=== PATIENT | male | born 1990 | race Hispanic/Latino ===

== ENCOUNTER 2017-11-22 11:35 | Inpatient (IN) | payer BC ==
[2017-11-22] MEDS ORDERED: Sodium Chloride 0.9% 1,000 ML IV ONE (12:02)
[2017-11-22] MEDS ORDERED: Albuterol 0.083% Inhal Sol (2.5 mg/3 mL) UD IH STA (12:03)
[2017-11-22] MEDS ORDERED: Piperacill/Tazo 3.375gm in Dex 3.375 GM/50 ML BAG IVPB STA (12:07)
--- NOTE | 2017-11-22 12:08 | C.PDOC ---
History Of Present Illness 27 yo male w/PMhx of asthma BIBA from Urgent care office for evaluation of SOB, possible pneumomediatinum diagnosed on CXR performed at urgent care. Pt reports, cold sx for past 3 days associated with nasal congestion, runny nose. Since yesterday, developed dyspnea, worse on supine position, productive cough with yellow sputum. Otherwise, pt denies high fever, chills, headache, dizziness, neck pain, drooling, CP, palpitation, abd. pain, V/D, back pain, UTI sx. At present time, pt appears comfortable, not in resp. distress. Time Seen by Provider: 11/22/17 11:46 Chief Complaint (Nursing): Cough, Cold, Congestion History Per: Patient Past Medical History Reviewed: Historical Data, Nursing Documentation, Vital Signs Vital Signs: Last Vital Signs Temp 98.1 F 11/22/17 14:36 Pulse 96 H 11/22/17 14:36 Resp 20 11/22/17 14:36 BP 137/85 11/22/17 14:36 Pulse Ox 94 L 11/22/17 14:36 - Medical History PMH: Asthma Family History: States: No Known Family Hx - Social History Hx Tobacco Use: No Hx Alcohol Use: Yes Hx Substance Use: Yes (marijuana use twice per wek) - Immunization History Hx Tetanus Toxoid Vaccination: No Hx Influenza Vaccination: Yes Hx Pneumococcal Vaccination: No Review Of Systems Except As Marked, All Systems Reviewed And Found Negative. Constitutional: Negative for: Fever, Chills Eyes: Negative for: Vision Change ENT: Positive for: Nose Discharge, Nose Congestion. Negative for: Ear Discharge Cardiovascular: Negative for: Chest Pain, Palpitations, Edema, Light Headedness Respiratory: Positive for: Cough, Shortness of Breath, Sputum Gastrointestinal: Negative for: Nausea, Vomiting, Abdominal Pain, Diarrhea Genitourinary: Negative for: Dysuria Musculoskeletal: Negative for: Neck Pain, Back Pain Skin: Negative for: Rash Neurological: Negative for: Weakness, Numbness, Headache, Dizziness Physical Exam - Physical Exam Appears: Well, Non-toxic, No Acute Distress Skin: Normal Color, Warm, Dry, No Rash Head: Normacephalic Eye(s): bilateral: PERRL Ear(s): Bilateral: Normal Nose: No Flaring, Discharge (B/L congestion with scant clear rhinorrhea) Oral Mucosa: Moist Tongue: Normal Appearing Lips: Normal Appearing Throat: No Erythema, No Drooling Neck: Trachea Midline, Supple Cardiovascular: Rhythm Regular, No Murmur, No JVD Respiratory: No Decreased Breath Sounds, No Accessory Muscle Use, No Rales, No Rhonchi, No Stridor, Wheezing (diffuse expiratory wheezing B/L) Gastrointestinal/Abdominal: Soft, No Tenderness, No Distention, No Guarding Extremity: Normal ROM, No Pedal Edema, No Deformity, No Swelling Neurological/Psych: Oriented x3, Normal Speech ED Course And Treatment - Laboratory Results Result Diagrams: 11/22/17 13:19 11/22/17 13:19 O2 Sat by Pulse Oximetry: 93 Pulse Ox Interpretation: Abnormal - Radiology CXR Interpretation: Yes: Other ((+) pneumomediastinum) - CT Scan/US CT chest w/o contrast Other Rad Studies (CT/US): Radiology Report Reviewed CT/US Interpretation: IMPRESSION: 1. Moderate pneumomediastinum is appreciated diffusely, a rare complication of asthma. Numerous other etiologies are possible otherwise and clinical correlation is recommended. 2. Nonspecific ground-glass opacity is seen scattered infrequently at the bilateral lower greater than upper left upper lobe and right middle lobe. Limited bilateral reticular changes seen in the apices. Consider potential atypical pneumonitis. 3. 2 subpleural nodular identified with 1 in each apex, noncalcified. A calcified likely granuloma is seen at the right apex as well. Clinically correlate with potential need for follow-up chest CT. Pulmonary findings discussed with Dr. Arshad with written down and read back verification 11/22/2017 2:[address] w/o contrast Other Rad Studies (CT/US): Radiology Report Reviewed CT/US Interpretation: MPRESSION: Emphysematous changes of dissected into the deep soft tissues of the neck as described above, from pneumo mediastinum likely related to asthma. Please see discussion above. This noncontrast examination otherwise appears unremarkable. Please see separate chest CT evaluating pneumomediastinum. Progress Note: Pt remined [place] during the Ed evaluation. Consult called with surgery , group president at bedside. Case discussed with and admission to telemtry arranged. Consult with , pulm placed per request. Disposition - Disposition Disposition: HOSPITALIZED Disposition Time: 13:34 Condition: STABLE Forms: [facility] (Sami) - Clinical Impression Clinical Impression: Pneumomediastinum, Asthma exacerbation, Pneumonia
[2017-11-22] MEDS ORDERED: Albuterol 0.083% Inhal Sol (2.5 mg/3 mL) UD ONE (12:31)
[2017-11-22] MEDS ORDERED: Promethazine/Cod 6.25mg-10mg/5ml Syr UD PO STA (13:25)
[2017-11-22 13:34] LABS: BASO # 0.1 K/uL (0.0-0.2); BASO % 0.7 % (0.0-2.0); EOS # 0.2 K/uL (0.0-0.7); EOS % 1.4 % (0.0-4.0); LYMPH # 1.6 K/uL (1.0-4.3); LYMPH % 14.9 % (20.0-40.0); MEAN CELL VOLUME 85.2 fL (80.0-94.0); MEAN CORPUSCULAR HEMOGLOBIN 29.3 pg (27.0-31.0); MEAN CORPUSCULAR HGB CONC 34.3 g/dL (33.0-37.0); MEAN PLATELET VOLUME 8.7 fL (7.2-11.7); MONO % 9.4 % (0.0-10.0); NEUT # 8.1 K/uL (1.8-7.0); NEUT % 73.6 % (50.0-75.0); RBC 5.48 Mil/uL (4.40-5.90)
[2017-11-22] MEDS ORDERED: Sodium Chloride 0.9% 1,000 ML ONE ×2 (13:37→17:28)
[2017-11-22 13:39] LABS: INR 1.3; PROTHROMBIN TIME 14.7 SECONDS (9.7-12.2)
[2017-11-22] MEDS ORDERED: Piperacillin/Tazobact 3.375 gm 100 ML IVPB ONE (13:41)
[2017-11-22] MEDS ORDERED: Promethazine/Cod 6.25mg-10mg/5ml Syr UD ONE (13:41)
[2017-11-22 13:46] LABS: ALB/GLOB RATIO 1.5 (1.0-2.1); ALT/SGPT 32 U/L (21-72); AST/SGOT 26 U/L (17-59); BLOOD UREA NITROGEN 14 mg/dL (9-20); CALCIUM 9.9 mg/dl (8.6-10.4); GFR NON-AFRICAN AMERICAN > 60
--- NOTE | 2017-11-22 13:59 | RAD ---
Date of service: 11/22/2017 HISTORY: Cough COMPARISON: No prior. TECHNIQUE: Chest PA and lateral FINDINGS: LUNGS: No active pulmonary disease. PLEURA: No significant pleural effusion identified. No pneumothorax apparent. CARDIOVASCULAR: Normal. OSSEOUS STRUCTURES: No significant abnormalities. VISUALIZED UPPER ABDOMEN: Normal. OTHER FINDINGS: None. IMPRESSION: No active disease.
--- NOTE | 2017-11-22 14:36 | CT ---
Date of service: 11/22/2017 PROCEDURE: CT Chest without contrast HISTORY: SOB COMPARISON: No prior CT available for comparison. TECHNIQUE: Contiguous axial images were obtained through the chest without intravenous contrast enhancement. Sagittal and coronal reconstructions were performed. Radiation dose (DLP): 937.35 mGy-cm. This CT exam was performed using one or more of the following dose reduction techniques: Automated exposure control, adjustment of the mA and/or kV according to patient size, and/or use of iterative reconstruction technique. FINDINGS: LUNGS: Trace ground-glass focal opacity is identified scattered at the left upper lobe and bilateral lower lobes and minimally at the right middle lobe as well. A tiny calcified granuloma or a sub pleural calcifications seen at the right upper lobe. Central airways appear clear. 4 mm nodule is subpleural at the superior-most margins of the left major fissure image 34 series 4 with a similar focus 3 mm greatest dimension at the right upper lobe posteriorly in image 38, also subpleural. Neither of these are felt to be calcified. Limited reticular changes are seen the bilateral pulmonary apices. MEDIASTINUM: There is diffuse pneumomediastinum. Gas partially surrounding the heart is felt to be extrinsic to the pericardial surface and unlikely represent pneumopericardium. Emphysema dissects into the deep soft tissues at the thoracic inlet/inferior neck. Thoracic aorta is normal in caliber. Normal sized heart. Main pulmonary artery unremarkable. No vascular congestion. No lymphadenopathy. PLEURA: No pleural fluid. No pneumothorax. BONES: No fracture. No destructive lesion. UPPER ABDOMEN: Grossly unremarkable. OTHER FINDINGS: None. IMPRESSION: 1. Moderate pneumomediastinum is appreciated diffusely, a rare complication of asthma. Numerous other etiologies are possible otherwise and clinical correlation is recommended. 2. Nonspecific ground-glass opacity is seen scattered infrequently at the bilateral lower greater than upper left upper lobe and right middle lobe. Limited bilateral reticular changes seen in the apices. Consider potential atypical pneumonitis. 3. 2 subpleural nodular identified with 1 in each apex, noncalcified. A calcified likely granuloma is seen at the right apex as well. Clinically correlate with potential need for follow-up chest CT. Pulmonary findings discussed with Dr. Arshad with written down and read back verification 11/22/2017 2:15 p.m..
--- NOTE | 2017-11-22 14:43 | CT ---
Date of service: 11/22/2017 PROCEDURE: CT NECK WITHOUT CONTRAST HISTORY: SOB COMPARISON: None available. TECHNIQUE: CT of the neck without intravenous contrast. Coronal and sagittal reformats generated. Radiation dose: DLP 561.20 mGy-cm This CT exam was performed using one or more of the following dose reduction techniques: Automated exposure control, adjustment of the mA and/or kV according to patient size, and/or use of iterative reconstruction technique. FINDINGS: General evaluation of the supra and infrahyoid neck is remarkable for emphysematous dissection from pneumomediastinum into the inferior neck and extending cephalad primarily throughout the bilateral jugular digastric tissue planes as well as anterior to the prevertebral soft tissues diffusely terminating at the level of the posterior oropharynx. Trace emphysematous changes seen at the medial bilateral submandibular spaces as well. Finally, trace emphysema is seen anterior to the strap muscles at the level of the larynx. The lack of intravenous contrast as well as artifact from dental hardware obscure neck otherwise. No gross mass in the oral cavity, pharynx, larynx or the trachea. MASS: None grossly apparent in this noncontrast examination. GLANDS: Parotid and submandibular glands unremarkable. Normal size thyroid gland, without nodule. LYMPH NODES: Normal. No lymphadenopathy. CERVICAL SPINE: No fracture or focal lesion. OTHER FINDINGS: None. IMPRESSION: Emphysematous changes of dissected into the deep soft tissues of the neck as described above, from pneumo mediastinum likely related to asthma. Please see discussion above. This noncontrast examination otherwise appears unremarkable. Please see separate chest CT evaluating pneumomediastinum.
--- NOTE | 2017-11-22 15:07 | CP.PCM.CON ---
History of Present Illness - History of Present Illness History of Present Illness: CT Surgery: Dr Laguna Pt is a 27M with PMH of asthma (does not require meds). Pt reports he has had shortness of breath since tuesday (> 2 days). This SOB progressively worsened and became accompanied by a cough, initially productive with clear sputum. Pt admits to intermittent fevers as well. Yesterday, he had two episodes of gm sis, non-bloody, non-billious. Pt went to see his PMD today who sent him to ER after seeing what was presumably pneumomediastinum on chest x-ray. In ED pt is found to be tachycardic up to the 120s, his BP is within normal limits. He is afebrile, and in no acute distress. He does appear mildly an xious and is on nasal cannula, saturating in the high 90s. WBC 11. CT with evident pneumomediastinum extending circumfrentially around the esophagus and trachea up to the oropharynx. PMH: asthma PSH: none NKDA Social: social EtOH and cannabis Review of Systems - Review of Systems All systems: reviewed and no additional remarkable complaints except (as per hpi) Past Patient History - Infectious Disease Hx of Infectious Diseases: None - Past Social History Smoking Status: Never Smoked - PULMONARY Hx Asthma: Yes - PSYCHIATRIC Hx Substance Use: Yes (marijuana use twice per wek) - ANESTHESIA Hx Anesthesia: No Meds Allergies/Adverse Reactions: Allergies Allergy/AdvReac Type Severity Reaction Status Date / Time No Known Allergies Allergy Verified 11/22/17 11:49 Physical Exam - Constitutional Appears: Non-toxic, Agitated - Eye Exam Eye Exam: Normal appearance - ENT Exam ENT Exam: Mucous Membranes Dry - Respiratory Exam Respiratory Exam: absent: Accessory Muscle Use, Respiratory Distress Additional comments: palpable crepitus along supraclavicular neck - Cardiovascular Exam Cardiovascular Exam: Tachycardia, REGULAR RHYTHM - GI/Abdominal Exam GI & Abdominal Exam: Soft. absent: Tenderness - Rectal Exam Rectal Exam: Deferred - Extremities Exam Extremities exam: Negative for: pedal edema - Neurological Exam Neurological exam: Alert, Oriented x3 - Psychiatric Exam Psychiatric exam: Anxious, Normal Affect, Normal Mood - Skin Skin Exam: Normal Color, Warm Results - Vital Signs Recent Vital Signs: Last Vital Signs Temp 98.1 F 11/22/17 14:36 Pulse 96 H 11/22/17 14:36 Resp 20 11/22/17 14:36 BP 137/85 11/22/17 14:36 Pulse Ox 93 L 11/22/17 14:47 - Labs Result Diagrams: 11/22/17 13:19 11/22/17 13:19 Labs: Laboratory Results - last 24 hr 11/22/17 11/22/17 11/22/17 13:19 13:19 13:19 WBC 11.0 H RBC 5.48 Hgb 16.0 Hct 46.7 MCV 85.2 MCH 29.3 MCHC 34.3 RDW 13.0 Plt Count 247 MPV 8.7 Neut % (Auto) 73.6 Lymph % (Auto) 14.9 L [place] % (Auto) 9.4 Eos % (Auto) 1.4 Baso % (Auto) 0.7 Neut # (Auto) 8.1 H Lymph # (Auto) 1.6 [place] # (Auto) 1.0 H Eos # (Auto) 0.2 Baso # (Auto) 0.1 PT 14.7 H INR 1.3 APTT 36 H Sodium 143 Potassium 4.0 Chloride 105 Carbon Dioxide 23 Anion Gap 19 BUN 14 Creatinine 1.1 Est GFR ( Amer) > 60 Est GFR (Non-Af Amer) > 60 Random Glucose 114 H Calcium 9.9 Total Bilirubin 1.1 AST 26 ALT 32 Alkaline Phosphatase 74 Troponin I < 0.0120 Total Protein 8.4 H Albumin 5.0 Globulin 3.4 Albumin/Globulin Ratio 1.5 Blood Type Antibody Screen 11/22/17 13:19 WBC RBC Hgb Hct MCV MCH MCHC RDW Plt Count MPV Neut % (Auto) Lymph % (Auto) [place] % (Auto) Eos % (Auto) Baso % (Auto) Neut # (Auto) Lymph # (Auto) [place] # (Auto) Eos # (Auto) Baso # (Auto) PT INR APTT Sodium Potassium Chloride Carbon Dioxide Anion Gap BUN Creatinine Est GFR ( Amer) Est GFR (Non-Af Amer) Random Glucose Calcium Total Bilirubin AST ALT Alkaline Phosphatase Troponin I Total Protein Albumin Globulin Albumin/Globulin Ratio Blood Type O POSITIVE Antibody Screen Negative Assessment & Plan - Assessment and Plan (Free Text) Assessment: 27M with pneumomediastinum Plan: given tachycardia and dyspnea likely not just benign incidental finding Admit - would recommend ICU eval vs telemetry NPO stat esophogram (IF NOT AVAILABLE WILL GET STAT CT W/ PO CONTRAST) pt likely may need bronchoscopy prophylactic abx as per primary daily CXR pending work-up results - will likely repeat CT in 48 hours to eval progression case and imaging reviewed and d/w Dr Jase [place], PGY4
[2017-11-22] MEDS ORDERED: Promethazine/Cod 6.25mg-10mg/5ml Syr UD PO PRN (16:33)
--- NOTE | 2017-11-22 16:33 | CP.PCM.CON ---
Past Patient History - Infectious Disease Hx of Infectious Diseases: None - Past Social History Smoking Status: Never Smoked - PULMONARY Hx Asthma: Yes - PSYCHIATRIC Hx Substance Use: Yes (marijuana use twice per wek) - ANESTHESIA Hx Anesthesia: No Meds Allergies/Adverse Reactions: Allergies Allergy/AdvReac Type Severity Reaction Status Date / Time No Known Allergies Allergy Verified 11/22/17 11:49 - Medications Medications: Current Medications Piperacillin Sod/Tazobactam Sod (Zosyn 3.375 Gm Iv Premix) 3.375 gm in 50 mls @ 100 mls/hr IVPB Q6H [facility]; Protocol Sodium Chloride (Sodium Chloride 0.9%) 1,000 mls @ 100 mls/hr IV .Q10H [facility] Results - Vital Signs Recent Vital Signs: Last Vital Signs Temp 98.1 F 11/22/17 14:36 Pulse 96 H 11/22/17 14:36 Resp 20 11/22/17 14:36 BP 137/85 11/22/17 14:36 Pulse Ox 93 L 11/22/17 14:47 - Labs Result Diagrams: 11/22/17 13:19 11/22/17 13:19 Labs: Laboratory Results - last 24 hr 11/22/17 11/22/17 11/22/17 13:19 13:19 13:19 WBC 11.0 H RBC 5.48 Hgb 16.0 Hct 46.7 MCV 85.2 MCH 29.3 MCHC 34.3 RDW 13.0 Plt Count 247 MPV 8.7 Neut % (Auto) 73.6 Lymph % (Auto) 14.9 L [place] % (Auto) 9.4 Eos % (Auto) 1.4 Baso % (Auto) 0.7 Neut # (Auto) 8.1 H Lymph # (Auto) 1.6 [place] # (Auto) 1.0 H Eos # (Auto) 0.2 Baso # (Auto) 0.1 PT 14.7 H INR 1.3 APTT 36 H Sodium 143 Potassium 4.0 Chloride 105 Carbon Dioxide 23 Anion Gap 19 BUN 14 Creatinine 1.1 Est GFR ( Amer) > 60 Est GFR (Non-Af Amer) > 60 Random Glucose 114 H Calcium 9.9 Total Bilirubin 1.1 AST 26 ALT 32 Alkaline Phosphatase 74 Troponin I < 0.0120 Total Protein 8.4 H Albumin 5.0 Globulin 3.4 Albumin/Globulin Ratio 1.5 Blood Type Antibody Screen 11/22/17 13:19 WBC RBC Hgb Hct MCV MCH MCHC RDW Plt Count MPV Neut % (Auto) Lymph % (Auto) [place] % (Auto) Eos % (Auto) Baso % (Auto) Neut # (Auto) Lymph # (Auto) [place] # (Auto) Eos # (Auto) Baso # (Auto) PT INR APTT Sodium Potassium Chloride Carbon Dioxide Anion Gap BUN Creatinine Est GFR ( Amer) Est GFR (Non-Af Amer) Random Glucose Calcium Total Bilirubin AST ALT Alkaline Phosphatase Troponin I Total Protein Albumin Globulin Albumin/Globulin Ratio Blood Type O POSITIVE Antibody Screen Negative
[2017-11-22] MEDS ORDERED: Iodixanol 320 MG/ML 100 ML BOTTLE IV ONE (16:55)
[2017-11-22] MEDS: Sodium Chloride 0.9% 1,000 ML IV SCH (17:00)
[2017-11-22] MEDS ORDERED: MethylPREDNISolone 40 mg Vial ONE (17:28)
[2017-11-22] MEDS ORDERED: Iohexol 240 (50 ml) PO ONE (17:33)
[2017-11-22] MEDS: MethylPREDNISolone 40 mg Vial IV SCH (17:35)
--- NOTE | 2017-11-22 17:35 | CT ---
Date of service: 11/22/2017 PROCEDURE: CT NECK WITH CONTRAST HISTORY: r/o esophageal perforation COMPARISON: None available. TECHNIQUE: CT of the neck with intravenous contrast. Coronal and sagittal reformats generated. Intravenous contrast dose: Visipaque 320, 50 cc. Radiation dose: DLP 596.33 MGy-cm This CT exam was performed using one or more of the following dose reduction techniques: Automated exposure control, adjustment of the mA and/or kV according to patient size, and/or use of iterative reconstruction technique. FINDINGS: Stable cervical emphysematous change are appreciate in the deep soft tissue planes of the supra and and infrahyoid neck once again. Emphysema is primarily identified within the jugular digastric and prevertebral soft tissue planes and does not appear significantly changed at this time. No suspicious fluid collection is appreciated to suggest developing abscess. Salivary glands and the thyroid gland appears stable in appearance. Trace right supraclavicular emphysema is reiterated. The oral cavity, pharynx, larynx and trachea are stable in appearance overall. LYMPH NODES: Normal. No lymphadenopathy. CERVICAL SPINE: No fracture or focal lesion. VASCULAR STRUCTURES: Unremarkable. OTHER FINDINGS: None. IMPRESSION: Stable emphysematous changes in the neck with no suspicious enhancement appreciated. No definite abscess at this time. The visualized upper esophagus appears nonspecific. Without oral contrast esophagus is not adequately evaluated.
[2017-11-22] MEDS ORDERED: Iohexol 240 (50 ml) ONE (17:39)
--- NOTE | 2017-11-22 17:46 | CT ---
Date of service: 11/22/2017 PROCEDURE: CT Chest with contrast HISTORY: R/O ESOPHAGEAL PERFORATION COMPARISON: None available. TECHNIQUE: Contiguous axial images were obtained through the chest with intravenous contrast enhancement. Sagittal and coronal reconstructions were performed. IV contrast: Visipaque 320, 50 cc Radiation dose (DLP): 815.92 mGy-cm. This CT exam was performed using one or more of the following dose reduction techniques: Automated exposure control, adjustment of the mA and/or kV according to patient size, and/or use of iterative reconstruction technique. FINDINGS: LUNGS: Stable limited ground-glass infiltrates bilaterally scattered in bilateral lower lobes and left upper lobe greater than right middle lobe. Central airways remain clear. Reticular changes again seen the bilateral apices including a few small subcentimeter nodules bilaterally. MEDIASTINUM: Stable emphysematous changes are seen in the at the mediastinum surrounding the trachea and heart as well as esophagus and the proximal segments of the right and left mainstem bronchi. A small hiatal hernia is appreciated with gas seen partially surrounding it as well. Mural thickening of the distal esophagus may indicate esophagitis. Clinically correlate further. This is not significantly changed compared prior CT performed without contrast 11/22/2017. PLEURA: No pleural fluid. No pneumothorax. BONES: No fracture. No destructive lesion. UPPER ABDOMEN: Grossly unremarkable. OTHER FINDINGS: None. IMPRESSION: Stable mediastinal emphysematous changes are identified without significant increased appreciated. Source of emphysema remains indeterminate though this can be seen in cases of asthma. Evaluation of the esophagus reflects a small hiatal hernia and thickening distally potentially reflecting esophagitis or simply collapse of the herniated stomach. No fluid collection or pattern of definite abscess at this time. Ultimately, evaluation by esophagram may be required if clinical concern for esophageal perforation remains. CT evaluation of the esophagus as imaged is indeterminate.
[2017-11-22] MEDS: Piperacill/Tazo 3.375gm in Dex 3.375 GM/50 ML BAG IVPB SCH (19:00)
[2017-11-22] MEDS: Albuterol-Ipratrop 3 mg / 0.5 (3 ml) UD INH SCH ×2 (20:00→20:15)
[2017-11-23] MEDS: MethylPREDNISolone 40 mg Vial IV SCH ×3 (00:10→18:00)
[2017-11-23] MEDS: Piperacill/Tazo 3.375gm in Dex 3.375 GM/50 ML BAG IVPB SCH ×4 (00:11→18:11)
[2017-11-23 00:41] VITALS: RESP 20
[2017-11-23] MEDS: Albuterol-Ipratrop 3 mg / 0.5 (3 ml) UD INH SCH ×4 (01:28→19:58)
[2017-11-23] MEDS: Sodium Chloride 0.9% 1,000 ML IV SCH ×4 (05:06→22:16)
[2017-11-23 13:59] LABS: HEMOGLOBIN 14.8 g/dL (12.0-18.0); LYMPH # 1.4 K/uL (1.0-4.3); LYMPH % 9.4 % (20.0-40.0); MEAN CELL VOLUME 84.4 fL (80.0-94.0); MEAN CORPUSCULAR HEMOGLOBIN 29.1 pg (27.0-31.0); MEAN CORPUSCULAR HGB CONC 34.5 g/dL (33.0-37.0); MEAN PLATELET VOLUME 8.5 fL (7.2-11.7); MONO # 0.5 K/uL (0.0-0.8); MONO % 3.4 % (0.0-10.0); NEUT # 13.3 K/uL (1.8-7.0); NEUT % 87.2 % (50.0-75.0); PLATELET COUNT 272 K/uL (130-400); RBC 5.09 Mil/uL (4.40-5.90); RED CELL DISTRIBUTION WIDTH 13.2 % (11.5-14.5); WHITE BLOOD COUNT 15.3 K/uL (4.8-10.8)
[2017-11-23] MEDS ORDERED: Iohexol 240 200 ML ONE (14:02)
[2017-11-23 14:18] LABS: LYMPHOCYTE 5 % (20-40); MONOCYTE 1 % (0-10); NEUTROPHIL 94 % (50-75); TOTAL CELLS COUNTED 100
[2017-11-23 14:19] LABS: PLATELET ESTIMATE NORMAL (NORMAL)
[2017-11-23 14:22] LABS: BLOOD UREA NITROGEN 18 mg/dL (9-20); CALCIUM 9.6 mg/dl (8.6-10.4); GFR NON-AFRICAN AMERICAN > 60
--- NOTE | 2017-11-23 14:35 | CP.PCM.PN ---
Subjective - Date & Time of Evaluation Date of Evaluation: 11/23/17 Time of Evaluation: 14:17 - Subjective Subjective: Consultation requested by Dr Marcelino. Reason for consultation: Pneumomediastinum, Pt s/e and imaging studies and labs reviewed. 27 yo male, presented to ER with mediatinal emphysema discovered at PMD's office -apparently brought about after severe coughing spells of 2d duration. Emesis x2. Not bloody. Some lateral wall chest pain. Px: subq emphysema, ant chest wall and neck bilat. abd soft and no tenderness. ct of chestx2 yesterday: massive mediatinal emphysema extending to neck bilat. Esophagus appears intact(IV contrast)-but no po contrast studies have been performed. These two ct show no increase in mediastinal emphysema. wbc-yesterday 11k and today was 15k. Pt is doing symptomatically better yesterday. Less chest discomfort. and breathing better. We need stat esophagogram today. a/p: 1. mediastianl emphysema with subq emphysema. 2. Probably due to ruptured blebs or adhesions or alveoli. 3. r/o esophageal perforation. 4. r/o tracheobronchial lacercation. 5. stat esophagram. 6. Serial labs. 7.d/w Dr. Gardner. Addendum: I oversaw esophagrams and ct with contrast indirectly this pm; studies showed no esophageal perforation based on 's reading. Objective - Vital Signs/Intake and Output Vital Signs (last 24 hours): Temp Pulse Resp BP Pulse Ox 98 F 108 H 20 125/73 96 11/23/17 07:00 11/23/17 07:44 11/23/17 07:00 11/23/17 07:00 11/23/17 07:00 - Medications Medications: Current Medications Albuterol/Ipratropium (Duoneb 3 Mg/0.5 Mg (3 Ml) Ud) 3 ml INH RQ6 [facility] Last Admin: 11/23/17 13:42 Dose: 3 ml Piperacillin Sod/Tazobactam Sod (Zosyn 3.375 Gm Iv Premix) 3.375 gm in 50 mls @ 100 mls/hr IVPB Q6H [facility]; Protocol Last Admin: 11/23/17 12:03 Dose: 100 mls/hr Sodium Chloride (Sodium Chloride 0.9%) 1,000 mls @ 100 mls/hr IV .Q10H [facility] Last Admin: 11/23/17 05:06 Dose: 100 mls/hr Methylprednisolone (Solu-Medrol) 40 mg IV Q8H [facility] Last Admin: 11/23/17 09:41 Dose: 40 mg Montelukast Sodium (Singulair) 10 mg PO HS [facility] Last Admin: 11/22/17 22:00 Dose: Not Given Pneumococcal Polyvalent Vaccine (Pneumovax 23 Vaccine) 0.5 ml IM .ONCE ONE Stop: 11/24/17 18:01 Promethazine HCl/Codeine (Phenergan/Codeine Oral Syrup) 5 ml PO Q4 PRN PRN Reason: Cough - Labs Labs: 11/23/17 13:48 11/22/17 13:19 PT 14.7 SECONDS (9.7-12.2) H 11/22/17 13:19 INR 1.3 11/22/17 13:19 APTT 36 SECONDS (21-34) H 11/22/17 13:19
[2017-11-23 15:21] LABS: SQUAMOUS EPITHIAL < 1 /hpf (0-5); URINE BILIRUBIN NEGATIVE (NEGATIVE); URINE BLOOD NEGATIVE (NEGATIVE); URINE CLARITY Clear (Clear); URINE COLOR Amber (YELLOW); URINE GLUCOSE (UA) NORMAL (Normal); URINE LEUKOCYTE ESTERASE NEG Leu/uL (Negative); URINE PROTEIN 1+ mg/dL (NEGATIVE)
--- NOTE | 2017-11-23 15:45 | CT ---
Date of service: 11/23/2017 PROCEDURE: CT Chest without contrast HISTORY: r/o leak COMPARISON: Comparison made with prior CT chest 11/22/2017. TECHNIQUE: Contiguous axial images were obtained through the chest without intravenous contrast enhancement. Sagittal and coronal reconstructions were performed. Radiation dose (DLP): 925.29 mGy-cm. This CT exam was performed using one or more of the following dose reduction techniques: Automated exposure control, adjustment of the mA and/or kV according to patient size, and/or use of iterative reconstruction technique. FINDINGS: LUNGS: Anmol there is mild localized atelectasis and vague ground-glass opacity changes seen in the right lung base and to a lesser degree left posterior sulcus.. No masses or parenchymal nodules are identified. MEDIASTINUM: Re demonstrated is residual with air dissecting into the fascial planes of the lower neck. Please refer to CT scan of the neck 11/22/2017 and corresponding report for additional details. The esophagus appears intact without evidence of gross laceration or contrast extravasation. PLEURA: No pleural fluid. No pneumothorax. BONES: No acute fracture no destructive lesion. UPPER ABDOMEN: Upper abdominal structures are partially obscured due to significant on are opaque contrast material opacifying distended stomach. OTHER FINDINGS: None. IMPRESSION: Re demonstrated is a pneumomediastinum which extends superiorly dissecting into the fascial planes of the base of the neck. No evidence of gross esophageal laceration is identified.. No contrast extravasation is seen extending into the pneumomediastinum
[2017-11-23 16:50] LABS: HEMOGLOBIN 15.1 g/dL (12.0-18.0); MEAN CORPUSCULAR HEMOGLOBIN 29.8 pg (27.0-31.0); MEAN CORPUSCULAR HGB CONC 35.1 g/dL (33.0-37.0); MEAN PLATELET VOLUME 8.4 fL (7.2-11.7); RBC 5.07 Mil/uL (4.40-5.90); RED CELL DISTRIBUTION WIDTH 13.1 % (11.5-14.5); WHITE BLOOD COUNT 15.5 K/uL (4.8-10.8)
--- NOTE | 2017-11-23 18:46 | CP.PCM.PN ---
Subjective - Date & Time of Evaluation Date of Evaluation: 11/23/17 Time of Evaluation: 15:00 - Subjective Subjective: patient seen and examined Cough and shortness of breath much improved CAT scan of the chest noted Afebrile Denies any chest pain Objective - Vital Signs/Intake and Output Vital Signs (last 24 hours): Temp Pulse Resp BP Pulse Ox 98.2 F 94 H 20 158/80 H 95 11/23/17 15:00 11/23/17 15:00 11/23/17 15:00 11/23/17 15:00 11/23/17 15:00 - Medications Medications: Current Medications Albuterol/Ipratropium (Duoneb 3 Mg/0.5 Mg (3 Ml) Ud) 3 ml INH RQ6 [facility] Last Admin: 11/23/17 13:42 Dose: 3 ml Sodium Chloride (Sodium Chloride 0.9%) 1,000 mls @ 100 mls/hr IV .Q10H [facility] Last Admin: 11/23/17 18:17 Dose: 100 mls/hr Methylprednisolone (Solu-Medrol) 40 mg IV Q8H [facility] Last Admin: 11/23/17 18:00 Dose: 40 mg Montelukast Sodium (Singulair) 10 mg PO HS [facility] Last Admin: 11/22/17 22:00 Dose: Not Given Pneumococcal Polyvalent Vaccine (Pneumovax 23 Vaccine) 0.5 ml IM .ONCE ONE Stop: 11/24/17 18:01 Promethazine HCl/Codeine (Phenergan/Codeine Oral Syrup) 5 ml PO Q4 PRN PRN Reason: Cough - Labs Labs: 11/23/17 16:44 11/23/17 13:48 PT 14.7 SECONDS (9.7-12.2) H 11/22/17 13:19 INR 1.3 11/22/17 13:19 APTT 36 SECONDS (21-34) H 11/22/17 13:19 - Head Exam Head Exam: ATRAUMATIC, NORMOCEPHALIC - ENT Exam ENT Exam: Mucous Membranes Moist - Neck Exam Neck Exam: Normal Inspection - Respiratory Exam Respiratory Exam: Rhonchi - Cardiovascular Exam Cardiovascular Exam: REGULAR RHYTHM - GI/Abdominal Exam GI & Abdominal Exam: Soft, Normal Bowel Sounds - Extremities Exam Extremities Exam: Normal Inspection Assessment and Plan (1) Asthma exacerbation Assessment & Plan: Continue IV steroids Nebulizer treatment iV antibiotics Repeat CAT scan on Tuesday Status: Acute (2) Pneumomediastinum Status: Acute (3) Pneumonia Status: Acute
--- NOTE | 2017-11-23 22:36 | CP.PCM.HP ---
Present on Admission - Present on Admission Any Indicators Present on Admission: No Past Patient History - Infectious Disease Hx of Infectious Diseases: None - Past Medical History & Family History Past Medical History?: Yes - Past Social History Smoking Status: Never Smoked - CARDIAC Hx Cardiac Disorders: No - PULMONARY Hx Respiratory Disorders: Yes Hx Asthma: Yes - NEUROLOGICAL Hx Neurological Disorder: No - HEENT Hx HEENT Problems: No - RENAL Hx Chronic Kidney Disease: No - ENDOCRINE/METABOLIC Hx Endocrine Disorders: No - HEMATOLOGICAL/ONCOLOGICAL Hx Blood Disorders: No - INTEGUMENTARY Hx Dermatological Problems: No - MUSCULOSKELETAL/RHEUMATOLOGICAL Hx Falls: No - GASTROINTESTINAL Hx Gastrointestinal Disorders: No - GENITOURINARY/GYNECOLOGICAL Hx Genitourinary Disorders: No - PSYCHIATRIC Hx Substance Use: Yes (marijuana) - SURGICAL HISTORY Hx Surgeries: No - ANESTHESIA Hx Anesthesia: No Hx Anesthesia Reactions: No Hx Malignant Hyperthermia: No Meds Home Medications: Home Medication List Medication Instructions Recorded Confirmed Type Albuterol Sulfate [Ventolin Hfa] 1 puff IH QID PRN #1 inh 11/25/17 Rx Azithromycin [Zithromax] 500 mg PO DAILY #5 tab 11/25/17 Rx Methylprednisolone [Medrol Dose 4 mg PO DAILY #21 mg 11/25/17 Rx Pack (21 tabs)] guaiFENesin [Robitussin] 100 mg PO Q4 PRN #8 oz 11/25/17 Rx Allergies/Adverse Reactions: Allergies Allergy/AdvReac Type Severity Reaction Status Date / Time No Known Allergies Allergy Verified 11/22/17 11:49 Results - Vital Signs Recent Vital Signs: Last Vital Signs Temp 98.2 F 11/23/17 15:00 Pulse 94 H 11/23/17 15:00 Resp 20 11/23/17 15:00 BP 158/80 H 11/23/17 15:00 Pulse Ox 95 11/23/17 15:00 - Labs Result Diagrams: 11/25/17 07:02 11/25/17 07:02 Labs: Laboratory Results - last 24 hr 11/23/17 11/23/17 11/23/17 13:48 13:48 15:07 WBC 15.3 H RBC 5.09 Hgb 14.8 Hct 43.0 MCV 84.4 MCH 29.1 MCHC 34.5 RDW 13.2 Plt Count 272 MPV 8.5 Neut % (Auto) 87.2 H Lymph % (Auto) 9.4 L [place] % (Auto) 3.4 Eos % (Auto) 0.0 Baso % (Auto) 0.0 Neut # (Auto) 13.3 H Lymph # (Auto) 1.4 [place] # (Auto) 0.5 Eos # (Auto) 0.0 Baso # (Auto) 0.0 Neutrophils % (Manual) 94 H Lymphocytes % (Manual) 5 L Monocytes % (Manual) 1 Platelet Estimate Normal RBC Morphology Normal Sodium 144 Potassium 3.8 Chloride 108 H Carbon Dioxide 21 L Anion Gap 19 BUN 18 Creatinine 1.1 Est GFR ( Amer) > 60 Est GFR (Non-Af Amer) > 60 Random Glucose 125 H Calcium 9.6 Urine Color Fe Urine Clarity Clear Urine pH 6.0 Ur Specific [place] 1.035 H Urine Protein 1+ H Urine Glucose (UA) Normal Urine Ketones Trace Urine Blood Negative Urine Nitrate Negative Urine Bilirubin Negative Urine Urobilinogen 4.0 Ur Leukocyte Esterase Neg Urine WBC (Auto) 1 Urine RBC (Auto) 1 Ur Squamous Epith Cells < 1 11/23/17 16:44 WBC 15.5 H RBC 5.07 Hgb 15.1 Hct 43.1 MCV 85.0 MCH 29.8 MCHC 35.1 RDW 13.1 Plt Count 265 MPV 8.4 Neut % (Auto) Lymph % (Auto) [place] % (Auto) Eos % (Auto) Baso % (Auto) Neut # (Auto) Lymph # (Auto) [place] # (Auto) Eos # (Auto) Baso # (Auto) Neutrophils % (Manual) Lymphocytes % (Manual) Monocytes % (Manual) Platelet Estimate RBC Morphology Sodium Potassium Chloride Carbon Dioxide Anion Gap BUN Creatinine Est GFR ( Amer) Est GFR (Non-Af Amer) Random Glucose Calcium Urine Color Urine Clarity Urine pH Ur Specific [place] Urine Protein Urine Glucose (UA) Urine Ketones Urine Blood Urine Nitrate Urine Bilirubin Urine Urobilinogen Ur Leukocyte Esterase Urine WBC (Auto) Urine RBC (Auto) Ur Squamous Epith Cells
[2017-11-23] MEDS: Azithromycin 500 MG in Sodium Chloride 0.9% 250 ML IVPB SCH (23:26)
[2017-11-24] MEDS: MethylPREDNISolone 40 mg Vial IV SCH ×3 (00:25→18:00)
[2017-11-24] MEDS: Albuterol-Ipratrop 3 mg / 0.5 (3 ml) UD INH SCH ×4 (01:13→19:32)
[2017-11-24 07:10] LABS: BASO % 0.1 % (0.0-2.0); LYMPH # 1.8 K/uL (1.0-4.3); LYMPH % 12.6 % (20.0-40.0); MEAN CORPUSCULAR HEMOGLOBIN 29.7 pg (27.0-31.0); MEAN CORPUSCULAR HGB CONC 34.9 g/dL (33.0-37.0); MEAN PLATELET VOLUME 8.6 fL (7.2-11.7); MONO # 0.6 K/uL (0.0-0.8); MONO % 3.8 % (0.0-10.0); NEUT # 12.1 K/uL (1.8-7.0); NEUT % 83.5 % (50.0-75.0); RBC 5.06 Mil/uL (4.40-5.90); RED CELL DISTRIBUTION WIDTH 13.3 % (11.5-14.5); WHITE BLOOD COUNT 14.5 K/uL (4.8-10.8)
[2017-11-24 07:27] LABS: BLOOD UREA NITROGEN 21 mg/dL (9-20); CALCIUM 9.6 mg/dl (8.6-10.4); GFR NON-AFRICAN AMERICAN > 60
--- NOTE | 2017-11-24 07:27 | CP.PCM.PN ---
Subjective - Date & Time of Evaluation Date of Evaluation: 11/24/17 Time of Evaluation: 07:25 - Subjective Subjective: Surgery PT seen and examined. No acute events. Underwent CT. SHows stable pneumomediastinum. Denies pain, SOB. Feeling better. Denies fever, nausea, vomiting, couching. Objective - Vital Signs/Intake and Output Vital Signs (last 24 hours): Temp Pulse Resp BP Pulse Ox 98.4 F 63 20 133/76 97 11/24/17 00:00 11/24/17 04:00 11/24/17 00:00 11/24/17 00:00 11/24/17 00:00 Intake and Output: 11/24/17 11/24/17 06:59 18:59 Intake Total 600 Balance 600 - Medications Medications: Current Medications Albuterol/Ipratropium (Duoneb 3 Mg/0.5 Mg (3 Ml) Ud) 3 ml INH RQ6 [facility] Last Admin: 11/24/17 01:13 Dose: 3 ml Sodium Chloride (Sodium Chloride 0.9%) 1,000 mls @ 100 mls/hr IV .Q10H [facility] Last Admin: 11/23/17 22:16 Dose: Not Given Ceftriaxone Sodium 1 gm/ (Sodium Chloride) 100 mls @ 100 mls/hr IVPB Q12H [facility]; Protocol Last Admin: 11/23/17 22:15 Dose: 100 mls/hr Azithromycin 500 mg/ Sodium (Chloride) 250 mls @ 250 mls/hr IVPB Q24H [facility]; Protocol Last Admin: 11/23/17 23:26 Dose: 250 mls/hr Methylprednisolone (Solu-Medrol) 40 mg IV Q8H [facility] Last Admin: 11/24/17 00:25 Dose: 40 mg Montelukast Sodium (Singulair) 10 mg PO HS [facility] Last Admin: 11/23/17 21:31 Dose: Not Given Pneumococcal Polyvalent Vaccine (Pneumovax 23 Vaccine) 0.5 ml IM .ONCE ONE Stop: 11/24/17 18:01 Promethazine HCl/Codeine (Phenergan/Codeine Oral Syrup) 5 ml PO Q4 PRN PRN Reason: Cough - Labs Labs: 11/24/17 06:52 11/23/17 13:48 PT 14.7 SECONDS (9.7-12.2) H 11/22/17 13:19 INR 1.3 11/22/17 13:19 APTT 36 SECONDS (21-34) H 11/22/17 13:19 - Constitutional Appears: No Acute Distress - Head Exam Head Exam: ATRAUMATIC, NORMAL INSPECTION, NORMOCEPHALIC - Eye Exam Eye Exam: EOMI, Normal appearance, PERRL Pupil Exam: NORMAL ACCOMODATION, PERRL - ENT Exam ENT Exam: Mucous Membranes Moist, Normal Exam - Neck Exam Neck Exam: Full ROM, Normal Inspection. absent: Lymphadenopathy - Respiratory Exam Respiratory Exam: NORMAL BREATHING PATTERN - Cardiovascular Exam Cardiovascular Exam: REGULAR RHYTHM, +S1, +S2. absent: Murmur - GI/Abdominal Exam GI & Abdominal Exam: Soft. absent: Tenderness - Extremities Exam Extremities Exam: Full ROM, Normal Capillary Refill, Normal Inspection. absent: Joint Swelling, Pedal Edema - Back Exam Back Exam: NORMAL INSPECTION - Neurological Exam Neurological Exam: Alert, Awake, CN II-XII Intact, Normal Gait, Oriented x3 - Psychiatric Exam Psychiatric exam: Normal Affect, Normal Mood Assessment and Plan - Assessment and Plan (Free Text) Assessment: 27 yo male, presented to ER with mediatinal emphysema discovered at PMD' office apparently brought about after severe coughing spells of 2d duration. Emesis x2. Not bloody. Some lateral wall chest pain. Px: subq emphysema, ant chest wall and neck bilat. abd soft and no tenderness. ct of chestx2 yesterday: massive mediatinal emphysema extending to neck bilat. Esophagus appears intact(IV contrast)-but no po contrast studies have been performed. These two ct show no increase in mediastinal emphysema. [id number] Pt is doing symptomatically better today. Less chest discomfort. and breathing better. Esophagram shows no perf a/p: 1. mediastianl emphysema with subq emphysema.: improving 2. Probably due to ruptured blebs or adhesions. 3. r/o esophageal perforation. 4. r/o tracheobrondhical lacercation. Will ROSA Laguna
[2017-11-24] MEDS: Sodium Chloride 0.9% 1,000 ML IV SCH ×2 (07:30→12:12)
--- NOTE | 2017-11-24 09:39 | HP ---
CHIEF COMPLAINT: Dyspnea and chest pain. HISTORY OF PRESENT ILLNESS: This is a 27-year-old white male with history of bronchial asthma, and since Tuesday, he has been having cough, congestion, wheezing, and thick yellow sputum production fever, chills, rigors, runny nose, stuffy nose, body aches, tiredness, anorexia, malaise, and fatigue. Due to intractable coughing, he also developed chest pain, short, non-radiating, not associated with diaphoresis, dizziness. He denies any sneezing, itchy eyes, or itchy nose. He denies any history of polyuria or polydipsia. He denies any history of skin rash, thigh pain, leg pain, hip pain. There is no history of trauma, fall, loss of consciousness. There is no history of anterior chest pain. There is no history of dyspepsia. There is no history of hematuria, pyuria, hematemesis, melena, hematochezia. PAST MEDICAL HISTORY: Bronchial asthma. SOCIAL HISTORY: Nonsmoker. Social EtOH user. He uses marijuana twice a week. CURRENT MEDICATIONS: None. PHYSICAL EXAMINATION: GENERAL: A young male, in no acute distress. VITAL SIGNS: BP 137/80, pulse 96, respiratory rate 20, temperature 98.1. SKIN: Normal. HEENT: Atraumatic. Negative pallor. Negative jaundice. Extraocular movements are intact. NECK: Supple. No JVD. CHEST WALL: Bilateral symmetrical expansion. LUNGS: Bilateral inspiratory and expiratory rales and rhonchi. Decreased air entry. CVS: S1 and S2, regular. No heave. No thrill. ABDOMEN: Soft, nontender. Bowel sounds are positive. RECTAL: No masses. No bleed. EXTREMITIES: No clubbing, cyanosis, or edema. MOTION STUDY ANALYST: Awake, alert, oriented x3. ASSESSMENT: 1. Exacerbation of bronchial asthma. 2. Rule out pneumothorax and pneumomediastinum. 3. Tracheobronchitis, rule out pneumonia. PLAN: Admit. Detailed orders written. Seen and examined. Kd Donaldson MD [facility] # [id number]
[2017-11-24] MEDS ORDERED: Azithromycin 500 MG in Sodium Chloride 0.9% 250 ML IVPB SCH (10:00)
--- NOTE | 2017-11-24 12:16 | CP.PCM.PN ---
Subjective - Date & Time of Evaluation Date of Evaluation: 11/24/17 Time of Evaluation: 12:12 - Subjective Subjective: Pt s/e. No c/o. vss anterior chest wall crepitations-stable or somewhat decreased. Abd-benign. a/p: Clears to reg as tolerated. d/w Dr. [place] Objective - Vital Signs/Intake and Output Vital Signs (last 24 hours): Temp Pulse Resp BP Pulse Ox 98.0 F 88 20 144/74 97 11/24/17 07:35 11/24/17 09:00 11/24/17 07:35 11/24/17 07:35 11/24/17 07:35 Intake and Output: 11/24/17 11/24/17 06:59 18:59 Intake Total 600 Balance 600 - Medications Medications: Current Medications Albuterol/Ipratropium (Duoneb 3 Mg/0.5 Mg (3 Ml) Ud) 3 ml INH RQ6 [facility] Last Admin: 11/24/17 07:26 Dose: 3 ml Sodium Chloride (Sodium Chloride 0.9%) 1,000 mls @ 100 mls/hr IV .Q10H [facility] Last Admin: 11/24/17 07:30 Dose: Not Given Ceftriaxone Sodium 1 gm/ (Sodium Chloride) 100 mls @ 100 mls/hr IVPB Q12H [facility]; Protocol Last Admin: 11/24/17 08:30 Dose: 100 mls/hr Azithromycin 500 mg/ Sodium (Chloride) 250 mls @ 250 mls/hr IVPB Q24H [facility]; Protocol Last Admin: 11/23/17 23:26 Dose: 250 mls/hr Methylprednisolone (Solu-Medrol) 40 mg IV Q8H [facility] Last Admin: 11/24/17 10:22 Dose: 40 mg Montelukast Sodium (Singulair) 10 mg PO HS [facility] Last Admin: 11/23/17 21:31 Dose: Not Given Pneumococcal Polyvalent Vaccine (Pneumovax 23 Vaccine) 0.5 ml IM .ONCE ONE Stop: 11/24/17 18:01 Promethazine HCl/Codeine (Phenergan/Codeine Oral Syrup) 5 ml PO Q4 PRN PRN Reason: Cough - Labs Labs: 11/24/17 06:52 11/24/17 06:52 PT 14.7 SECONDS (9.7-12.2) H 11/22/17 13:19 INR 1.3 11/22/17 13:19 APTT 36 SECONDS (21-34) H 11/22/17 13:19
--- NOTE | 2017-11-24 13:54 | CP.PCM.PCO ---
Physician Communication Note - Physician Communication Note Physician Communication Note: tolerating diet, asymptomatic, clear for d/c from surgery
--- NOTE | 2017-11-24 15:05 | RAD ---
Date of service: 11/23/2017. HISTORY: Rule out esophageal perforation. COMPARISON: Correlation made with CT scan chest 11/22/2017 TECHNIQUE: Single contrast esophagram was performed under fluoroscopic guidance. Multiple of fluoroscopic spot films and overhead radiographs of the esophagus obtained.. Patient tolerated procedure well. FINDINGS: The software developer intern film of the chest read demonstrates the pneumomediastinum with subcutaneous air in the base of the neck bilaterally right greater than left Esophagus exhibited normal contour, caliber and distensibility. No evidence of gross subcutaneous laceration or contrast extravasation. No evidence of esophageal stricture or mass lesion.. Small hiatal hernia. No gross esophageal reflux identified. IMPRESSION: No evidence of gross esophageal laceration or contrast extravasation. Continued follow-up CT chest recommended to resolution of pneumomediastinum
--- NOTE | 2017-11-24 17:12 | CP.PCM.PN ---
Subjective - Date & Time of Evaluation Date of Evaluation: 11/24/17 Time of Evaluation: 10:00 - Subjective Subjective: the patient seen and examined Breathing much improved Afebrile Denies any chest pain Slight cough Objective - Vital Signs/Intake and Output Vital Signs (last 24 hours): Temp Pulse Resp BP Pulse Ox 98.0 F 88 20 144/74 97 11/24/17 07:35 11/24/17 09:00 11/24/17 07:35 11/24/17 07:35 11/24/17 07:35 Intake and Output: 11/24/17 11/24/17 06:59 18:59 Intake Total 600 240 Balance 600 240 - Medications Medications: Current Medications Albuterol/Ipratropium (Duoneb 3 Mg/0.5 Mg (3 Ml) Ud) 3 ml INH RQ6 [facility] Last Admin: 11/24/17 13:28 Dose: 3 ml Sodium Chloride (Sodium Chloride 0.9%) 1,000 mls @ 100 mls/hr IV .Q10H [facility] Last Admin: 11/24/17 12:12 Dose: 100 mls/hr Ceftriaxone Sodium 1 gm/ (Sodium Chloride) 100 mls @ 100 mls/hr IVPB Q12H [facility]; Protocol Last Admin: 11/24/17 08:30 Dose: 100 mls/hr Azithromycin 500 mg/ Sodium (Chloride) 250 mls @ 250 mls/hr IVPB Q24H [facility]; Protocol Last Admin: 11/23/17 23:26 Dose: 250 mls/hr Methylprednisolone (Solu-Medrol) 40 mg IV Q8H [facility] Last Admin: 11/24/17 10:22 Dose: 40 mg Montelukast Sodium (Singulair) 10 mg PO HS [facility] Last Admin: 11/23/17 21:31 Dose: Not Given Pneumococcal Polyvalent Vaccine (Pneumovax 23 Vaccine) 0.5 ml IM .ONCE ONE Stop: 11/24/17 18:01 Promethazine HCl/Codeine (Phenergan/Codeine Oral Syrup) 5 ml PO Q4 PRN PRN Reason: Cough - Labs Labs: 11/24/17 06:52 11/24/17 06:52 PT 14.7 SECONDS (9.7-12.2) H 11/22/17 13:19 INR 1.3 11/22/17 13:19 APTT 36 SECONDS (21-34) H 11/22/17 13:19 - Head Exam Head Exam: ATRAUMATIC, NORMOCEPHALIC - ENT Exam ENT Exam: Mucous Membranes Moist - Neck Exam Neck Exam: Normal Inspection - Respiratory Exam Respiratory Exam: Clear to Ausculation Bilateral - Cardiovascular Exam Cardiovascular Exam: REGULAR RHYTHM - GI/Abdominal Exam GI & Abdominal Exam: Soft, Normal Bowel Sounds Assessment and Plan (1) Asthma exacerbation Assessment & Plan: switch to prednisone Nebulizer treatment Inhaled steroids Antibiotics DC home in a.m. Status: Acute (2) Pneumomediastinum Status: Acute (3) Pneumonia Status: Acute
[2017-11-24] MEDS ORDERED: Pneumococcal 23-Valent Vaccine IM ONE (18:00)
[2017-11-24] MEDS: Azithromycin 500 MG in Sodium Chloride 0.9% 250 ML IVPB SCH (19:38)
--- NOTE | 2017-11-25 00:02 | CP.PCM.PN ---
Objective - Vital Signs/Intake and Output Vital Signs (last 24 hours): Temp Pulse Resp BP Pulse Ox 97.8 F 90 20 125/70 96 11/24/17 15:15 11/24/17 15:15 11/24/17 15:15 11/24/17 15:15 11/24/17 15:15 Intake and Output: 11/24/17 11/25/17 18:59 06:59 Intake Total 240 Balance 240 - Medications Medications: Current Medications Albuterol/Ipratropium (Duoneb 3 Mg/0.5 Mg (3 Ml) Ud) 3 ml INH RQ6 [facility] Last Admin: 11/24/17 19:32 Dose: 3 ml Sodium Chloride (Sodium Chloride 0.9%) 1,000 mls @ 100 mls/hr IV .Q10H [facility] Last Admin: 11/24/17 12:12 Dose: 100 mls/hr Ceftriaxone Sodium 1 gm/ (Sodium Chloride) 100 mls @ 100 mls/hr IVPB Q12H [facility]; Protocol Last Admin: 11/24/17 21:29 Dose: 100 mls/hr Azithromycin 500 mg/ Sodium (Chloride) 250 mls @ 250 mls/hr IVPB Q24H [facility]; Protocol Last Admin: 11/24/17 19:38 Dose: 250 mls/hr Methylprednisolone (Solu-Medrol) 40 mg IV Q8H [facility] Last Admin: 11/24/17 18:00 Dose: 40 mg Montelukast Sodium (Singulair) 10 mg PO HS [facility] Last Admin: 11/24/17 21:29 Dose: 10 mg Promethazine HCl/Codeine (Phenergan/Codeine Oral Syrup) 5 ml PO Q4 PRN PRN Reason: Cough - Labs Labs: 11/24/17 06:52 11/24/17 06:52 PT 14.7 SECONDS (9.7-12.2) H 11/22/17 13:19 INR 1.3 11/22/17 13:19 APTT 36 SECONDS (21-34) H 11/22/17 13:19
[2017-11-25] MEDS: MethylPREDNISolone 40 mg Vial IV SCH ×2 (00:22→08:55)
[2017-11-25] MEDS: Albuterol-Ipratrop 3 mg / 0.5 (3 ml) UD INH SCH ×3 (01:15→13:32)
[2017-11-25 07:21] LABS: HEMOGLOBIN 14.5 g/dL (12.0-18.0); LYMPH % 17.4 % (20.0-40.0); MEAN CELL VOLUME 85.2 fL (80.0-94.0); MEAN CORPUSCULAR HEMOGLOBIN 29.7 pg (27.0-31.0); MEAN CORPUSCULAR HGB CONC 34.9 g/dL (33.0-37.0); MONO # 0.5 K/uL (0.0-0.8); NEUT # 9.1 K/uL (1.8-7.0); NEUT % 78.6 % (50.0-75.0); RBC 4.89 Mil/uL (4.40-5.90); WHITE BLOOD COUNT 11.6 K/uL (4.8-10.8)
[2017-11-25 07:57] LABS: BLOOD UREA NITROGEN 20 mg/dL (9-20); CALCIUM 9.6 mg/dl (8.6-10.4); GFR NON-AFRICAN AMERICAN > 60
--- NOTE | 2017-11-25 13:45 | PN ---
DATE: 11/25/2017 SUBJECTIVE: The patient is less short of breath. He is coughing. He is wheezing. No fever. No chills. PHYSICAL EXAMINATION: VITAL SIGNS: BP 128/73, pulse 65, respiratory rate 20, and temperature 97.9. LUNGS: Bilateral expiratory rales. No rhonchi. CVS: S1 and S2 regular. ASSESSMENT: 1. Exacerbation of asthma. 2. . 3. Tracheobronchitis. PLAN: Continue current medications. Monitor the patient. Kd Donaldson MD
--- NOTE | 2017-11-25 14:18 | CP.PCM.PN ---
Subjective - Date & Time of Evaluation Date of Evaluation: 11/25/17 Time of Evaluation: 08:20 - Subjective Subjective: The patient seen and examined No shortness of breath Denies any cough Afebrile Objective - Vital Signs/Intake and Output Vital Signs (last 24 hours): Temp Pulse Resp BP Pulse Ox 97.9 F 86 20 128/73 96 11/25/17 07:25 11/25/17 08:36 11/25/17 07:25 11/25/17 07:25 11/25/17 07:25 Intake and Output: 11/25/17 11/25/17 06:59 18:59 Intake Total 500 Balance 500 - Medications Medications: Current Medications Albuterol/Ipratropium (Duoneb 3 Mg/0.5 Mg (3 Ml) Ud) 3 ml INH RQ6 [facility] Last Admin: 11/25/17 13:32 Dose: Not Given Sodium Chloride (Sodium Chloride 0.9%) 1,000 mls @ 100 mls/hr IV .Q10H [facility] Last Admin: 11/24/17 12:12 Dose: 100 mls/hr Ceftriaxone Sodium 1 gm/ (Sodium Chloride) 100 mls @ 100 mls/hr IVPB Q12H [facility]; Protocol Last Admin: 11/25/17 08:54 Dose: 100 mls/hr Azithromycin 500 mg/ Sodium (Chloride) 250 mls @ 250 mls/hr IVPB Q24H [facility]; Protocol Last Admin: 11/24/17 19:38 Dose: 250 mls/hr Methylprednisolone (Solu-Medrol) 40 mg IV Q8H [facility] Last Admin: 11/25/17 08:55 Dose: 40 mg Montelukast Sodium (Singulair) 10 mg PO HS [facility] Last Admin: 11/24/17 21:29 Dose: 10 mg Promethazine HCl/Codeine (Phenergan/Codeine Oral Syrup) 5 ml PO Q4 PRN PRN Reason: Cough - Labs Labs: 11/25/17 07:02 11/25/17 07:02 PT 14.7 SECONDS (9.7-12.2) H 11/22/17 13:19 INR 1.3 11/22/17 13:19 APTT 36 SECONDS (21-34) H 11/22/17 13:19 - Head Exam Head Exam: ATRAUMATIC, NORMOCEPHALIC - Eye Exam Eye Exam: Normal appearance - ENT Exam ENT Exam: Mucous Membranes Moist - Neck Exam Neck Exam: Normal Inspection - Respiratory Exam Respiratory Exam: Clear to Ausculation Bilateral - Cardiovascular Exam Cardiovascular Exam: REGULAR RHYTHM - GI/Abdominal Exam GI & Abdominal Exam: Soft, Normal Bowel Sounds Assessment and Plan (1) Asthma exacerbation Assessment & Plan: Discharge patient home on p.o. antibiotics, prednisone and rescue inhaler Follow up in the office Status: Acute (2) Pneumomediastinum Status: Acute (3) Pneumonia Status: Acute
--- NOTE | 2017-11-25 15:06 | CP.PCM.PN ---
Subjective - Date & Time of Evaluation Date of Evaluation: 11/25/17 Time of Evaluation: 15:05 - Subjective Subjective: PT CLEARED FOR D/C PER DR. BUTLER AND DR. JULIEN. PER DR. JULIEN PT TO BE SENT HOME TODAY. PT EAGER FOR D/C. RX SENT TO PHARMACY RECOMMENDED BY DR. JULIEN. SEE BELOW FOR D/C INSTRUCTIONS PROVIDED TO PT. NO FURTHER ORDERS. -FOLLOW UP WITH PRIMARY DOCTOR OR DR. GREY IN THE OFFICE WITHIN 5 DAYS---CALL OFFICE FOR APPT. -FOLLOW UP WITH DR. JULIEN IN THE OFFICE WITHIN 7-10 DAYS---CALL OFFICE FOR APPT. -CONTINUE MEDICATIONS EXACTLY PRESCRIBED PER DR. JULIEN: 1) ZITHROMAX (ANTIBIOTIC) 500 MG---TAKE 1 TABLET BY MOUTH ONCE A DAY FOR 5 DA YS. 2) ALBUTEROL INHALER---TAKE 1-2 PUFFS INHALED 4 TIMES A DAY ONLY IF YOU NEED IT FOR SHORTNESS OF BREATH, WHEEZING. 3) MEDROL DOSE PACK (STEROID)---TAKE EXACTLY NOTED ON THE MEDICATION BOX. -FOR FURTHER QUESTIONS, CONTACT DR. GREY. Objective - Vital Signs/Intake and Output Vital Signs (last 24 hours): Temp Pulse Resp BP Pulse Ox 97.9 F 86 20 128/73 96 11/25/17 07:25 11/25/17 08:36 11/25/17 07:25 11/25/17 07:25 11/25/17 07:25 Intake and Output: 11/25/17 11/25/17 06:59 18:59 Intake Total 500 480 Balance 500 480 - Medications Medications: Current Medications Albuterol/Ipratropium (Duoneb 3 Mg/0.5 Mg (3 Ml) Ud) 3 ml INH RQ6 [facility] Last Admin: 11/25/17 13:32 Dose: Not Given Sodium Chloride (Sodium Chloride 0.9%) 1,000 mls @ 100 mls/hr IV .Q10H [facility] Last Admin: 11/24/17 12:12 Dose: 100 mls/hr Ceftriaxone Sodium 1 gm/ (Sodium Chloride) 100 mls @ 100 mls/hr IVPB Q12H [facility]; Protocol Last Admin: 11/25/17 08:54 Dose: 100 mls/hr Azithromycin 500 mg/ Sodium (Chloride) 250 mls @ 250 mls/hr IVPB Q24H [facility]; Pr otocol Last Admin: 11/24/17 19:38 Dose: 250 mls/hr Methylprednisolone (Solu-Medrol) 40 mg IV Q8H [facility] Last Admin: 11/25/17 08:55 Dose: 40 mg Montelukast Sodium (Singulair) 10 mg PO HS [facility] Last Admin: 11/24/17 21:29 Dose: 10 mg Promethazine HCl/Codeine (Phenergan/Codeine Oral Syrup) 5 ml PO Q4 PRN PRN Reason: Cough - Labs Labs: 11/25/17 07:02 11/25/17 07:02 PT 14.7 SECONDS (9.7-12.2) H 11/22/17 13:19 INR 1.3 11/22/17 13:19 APTT 36 SECONDS (21-34) H 11/22/17 13:19
[2017-11-25 15:51] VITALS: BP 150/78; PULSE 71; TEMP 98.2; O2SAT 95
[2017-11-25] MEDS ORDERED: Influenza Vaccine 60 MCG/0.5 ML SYR (3 yr & up) IM ONE (16:06)
--- NOTE | 2017-11-25 20:57 | CP.PCM.DIS ---
Provider - Provider Date of Admission: 11/22/17 13:30 Attending physician: Kd Donaldson MD Time Spent in preparation of Discharge (in minutes): 30 Hospital Course - Lab Results Lab Results: Micro Results 11/22/17 13:30 Blood Blood Culture - Preliminary NO GROWTH AFTER 3 DAYS 11/22/17 13:00 Blood Blood Culture - Preliminary NO GROWTH AFTER 3 DAYS Most Recent Lab Values WBC 11.6 K/uL (4.8-10.8) H 11/25/17 07:02 RBC 4.89 Mil/uL (4.40-5.90) 11/25/17 07:02 Hgb 14.5 g/dL (12.0-18.0) 11/25/17 07:02 Hct 41.7 % (35.0-51.0) 11/25/17 07:02 MCV 85.2 fL (80.0-94.0) 11/25/17 07:02 MCH 29.7 pg (27.0-31.0) 11/25/17 07:02 MCHC 34.9 g/dL (33.0-37.0) 11/25/17 07:02 RDW 13.0 % (11.5-14.5) 11/25/17 07:02 Plt Count 265 K/uL (130-400) 11/25/17 07:02 MPV 8.0 fL (7.2-11.7) 11/25/17 07:02 Neut % (Auto) 78.6 % (50.0-75.0) H 11/25/17 07:02 Lymph % (Auto) 17.4 % (20.0-40.0) L 11/25/17 07:02 [place] % (Auto) 4.0 % (0.0-10.0) 11/25/17 07:02 Eos % (Auto) 0.0 % (0.0-4.0) 11/25/17 07:02 Baso % (Auto) 0.0 % (0.0-2.0) 11/25/17 07:02 Neut # (Auto) 9.1 K/uL (1.8-7.0) H 11/25/17 07:02 Lymph # (Auto) 2.0 K/uL (1.0-4.3) 11/25/17 07:02 [place] # (Auto) 0.5 K/uL (0.0-0.8) 11/25/17 07:02 Eos # (Auto) 0.0 K/uL (0.0-0.7) 11/25/17 07:02 Baso # (Auto) 0.0 K/uL (0.0-0.2) 11/25/17 07:02 Neutrophils % (Manual) 94 % (50-75) H 11/23/17 13:48 Lymphocytes % (Manual) 5 % (20-40) L 11/23/17 13:48 Monocytes % (Manual) 1 % (0-10) 11/23/17 13:48 Platelet Estimate Normal (NORMAL) 11/23/17 13:48 RBC Morphology Normal 11/23/17 13:48 PT 14.7 SECONDS (9.7-12.2) H 11/22/17 13:19 INR 1.3 11/22/17 13:19 APTT 36 SECONDS (21-34) H 11/22/17 13:19 Sodium 142 mmol/L (132-148) 11/25/17 07:02 Potassium 4.5 mmol/L (3.6-5.2) 11/25/17 07:02 Chloride 108 mmol/L (98-107) H 11/25/17 07:02 Carbon Dioxide 21 mmol/L (22-30) L 11/25/17 07:02 Anion Gap 19 (10-20) 11/25/17 07:02 BUN 20 mg/dL (9-20) 11/25/17 07:02 Creatinine 1.0 mg/dL (0.8-1.5) 11/25/17 07:02 Est GFR ( Amer) > 60 11/25/17 07:02 Est GFR (Non-Af Amer) > 60 11/25/17 07:02 Random Glucose 109 mg/dL (75-110) 11/25/17 07:02 Calcium 9.6 mg/dl (8.6-10.4) 11/25/17 07:02 Total Bilirubin 1.1 mg/dL (0.2-1.3) 11/22/17 13:19 AST 26 U/L (17-59) 11/22/17 13:19 ALT 32 U/L (21-72) 11/22/17 13:19 Alkaline Phosphatase 74 U/L (38-126) 11/22/17 13:19 Troponin I < 0.0120 ng/mL (0.00-0.120) 11/22/17 13:19 Total Protein 8.4 g/dL (6.3-8.3) H 11/22/17 13:19 Albumin 5.0 g/dL (3.5-5.0) 11/22/17 13:19 Globulin 3.4 gm/dL (2.2-3.9) 11/22/17 13:19 Albumin/Globulin Ratio 1.5 (1.0-2.1) 11/22/17 13:19 Urine Color Fe (YELLOW) 11/23/17 15:07 Urine Clarity Clear (Clear) 11/23/17 15:07 Urine pH 6.0 (5.0-8.0) 11/23/17 15:07 Ur Specific [place] 1.035 (1.003-1.030) H 11/23/17 15:07 Urine Protein 1+ mg/dL (NEGATIVE) H 11/23/17 15:07 Urine Glucose (UA) Normal mg/dL (Normal) 11/23/17 15:07 Urine Ketones Trace mg/dL (NEGATIVE) 11/23/17 15:07 Urine Blood Negative (NEGATIVE) 11/23/17 15:07 Urine Nitrate Negative (NEGATIVE) 11/23/17 15:07 Urine Bilirubin Negative (NEGATIVE) 11/23/17 15:07 Urine Urobilinogen 4.0 mg/dL (0.2-1.0) 11/23/17 15:07 Ur Leukocyte Esterase Neg [place]/uL (Negative) 11/23/17 15:07 Urine WBC (Auto) 1 /hpf (0-5) 11/23/17 15:07 Urine RBC (Auto) 1 /hpf (0-3) 11/23/17 15:07 Ur Squamous Epith Cells < 1 /hpf (0-5) 11/23/17 15:07 Blood Type O POSITIVE 11/22/17 13:19 Antibody Screen Negative 11/22/17 13:19 Discharge Exam - Head Exam Head Exam: ATRAUMATIC, NORMOCEPHALIC Discharge Plan - Discharge Medications Prescriptions: Methylprednisolone [Medrol Dose Pack (21 tabs)] 4 mg PO DAILY #21 mg guaiFENesin [Robitussin] 100 mg PO Q4 PRN #8 oz PRN Reason: Cough Albuterol Sulfate [Ventolin Hfa] 1 puff IH QID PRN #1 inh PRN Reason: Shortness Of Breath Azithromycin [Zithromax] 500 mg PO DAILY #5 tab - Follow Up Plan Condition: STABLE Disposition: HOME/ ROUTINE Instructions: Azithromycin (Systemic), Asthma, Adult (DC), Pneumonia, Adult (DC), Albuterol, Guaifenesin, Methylprednisolone Additional Instructions: -FOLLOW UP WITH PRIMARY DOCTOR OR DR. DONALDSON IN THE OFFICE WITHIN 5 DAYS---CALL OFFICE FOR APPT. -FOLLOW UP WITH DR. DUMAS IN THE OFFICE WITHIN 7-10 DAYS---CALL OFFICE FOR APPT. -CONTINUE MEDICATIONS EXACTLY PRESCRIBED PER DR. DUMAS: 1) ZITHROMAX (ANTIBIOTIC) 500 MG---TAKE 1 TABLET BY MOUTH ONCE A DAY FOR 5 DAYS. 2) ALBUTEROL INHALER---TAKE 1-2 PUFFS INHALED 4 TIMES A DAY ONLY IF YOU NEED IT FOR SHORTNESS OF BREATH, WHEEZING. 3) MEDROL DOSE PACK (STEROID)---TAKE EXACTLY NOTED ON THE MEDICATION BOX. -FOR FURTHER QUESTIONS, CONTACT DR. DONALDSON. Referrals: Ty Dumas MD [Staff Provider] - Rich Laguna MD [Staff Provider] - Kd Donaldson MD [Staff Provider] -
--- NOTE | 2017-11-26 05:07 | DS ---
ADMISSION DIAGNOSIS: Exacerbation of bronchial asthma. DISCHARGE DIAGNOSES: Exacerbation of bronchial asthma, acute bronchitis, pneumomediastinum. HOSPITAL COURSE: This is young 27-year-old male with history of bronchial asthma, came in with cough, congestion, shortness of breath, wheezing, and he has dyspnea, cough, wheezing, possibility of an infiltrate with pneumomediastinum. He was started on Solu-Medrol, oxygen nebulizer, cough medications. His condition improved and he is for discharge. PHYSICAL EXAMINATION: VITAL SIGNS: Blood pressure 150/78, pulse 71, respiratory rate 20, and temperature 98.2. LABORATORY DATA: WBC 11.6, hemoglobin 14.5, hematocrit 41.7 and platelets 265. Sodium 142, potassium 4.5, chloride BUN 20 and creatinine 1. PLAN: The patient is stable for discharge. He will be followed up as outpatient. CONDITION UPON DISCHARGE: Stable. Kd Donaldson MD
== END 2017-11-25 16:25 | disposition home or self-care (01) | DRG 199 ==
LOC: C.ER 11:35 → C.9E 13:30 → C.6T 17:32
PROVIDERS: ADMIT Internal Medicine; ATTEND Internal Medicine
DX: J98.2 Interstitial emphysema (principal); J18.9 Pneumonia, unspecified organism; J45.901 Unspecified asthma with (acute) exacerbation; F12.90 Cannabis use, unspecified, uncomplicated; J20.9 Acute bronchitis, unspecified